=== PATIENT | female | born 1995 | race Caucasian/White ===

== ENCOUNTER 2022-06-01 16:12 | Inpatient (IN) ==
[2022-06-01] MEDS ORDERED: OXYTOCIN 30 UNITS/500 ML BAG IV PRN ×2 (16:53→21:08)
--- NOTE | 2022-06-01 17:02 | History & Physical Report ---
Date of Service June 01, 2022 Assessment & Plan (1) Active labor: Plan: 26 y/o at 39 wga presents in labor VSS Fetus cat 1 Labor - manage expectantly GBS neg desires epidural History of Present Illness Chief Complaint: Contractions Primary Care Provider: Mena Boyle MD 26 y/o at 39 wga presents w/ ctx increasing in frequency and intensity. They started 1AM but really worsened around 130pm at work today. 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 Hx: G1 2018 at 40 wks G2 2019 at 39 wks G3 current Remote hx CT 06/2021 neg cyto Allergies Allergy/AdvReac Type Severity Reaction Status Date / Time No Known Allergies Allergy Verified 05/29/22 13:51 Home Medications Medication Instructions Recorded Confirmed Type prenat.vits,nohelia,jzz-fghq-afjfi 1 tab PO DAILY 02/07/22 06/01/22 History ferrous sulfate 325 mg (65 mg 325 mg PO DAILY 03/27/22 06/01/22 History iron) tablet Patient History Medical History (Updated 06/01/22 @ 17:02 by Kylah Alegria MD) Anxiety Surgical History History of oral surgery Family History Grandfather (Paternal) Diabetes Grandfather (Maternal) Pancreatic cancer Denies family history of Ovarian cancer Prostate cancer Myocardial infarction Breast cancer Colorectal cancer Social History (Updated 02/07/22 @ 09:57 by Mckayla CARDENAS RN) Smoking Status: Never smoker Second Hand Exposure: No; Hx Alcohol Use: No Hx Substance Use: No Preferred Language: Romansh Communication Ability: Effective Line Repairer Required: No Beliefs That Will Affect Care: None marital status: marital status details: Landen Cash (30) [phone] Current Living Situation: Spouse Current Living Situation Comment: FOB and 2 children. 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 How many Children do You have: 2 Other Information That Helps Us Care for You: No Feels Safe at Home: Yes Safety Concerns: Feels Safe At This Time Childhood Exposure to Second-Hand Smoke: Yes Dental Care, Regularly: Yes Seatbelt Use: always Sunscreen Use: No Physical Exam Genitourinary: OB Exam Abdomen: + vertex and + estimated weight (7) Manual OB Exam: + cervical dilation 5 cm, + cervical effacement 70% and + station -2 OB Exam Monitor Tracing: + external FHT monitor used, + external uterine monitor used (q4-5) and + category I (125/mod/+accel/-decel) Results & Data ([facility]) Vital Signs (Past 12 Hours) Vital Signs Temp Pulse Resp BP 06/01/22 16:28 98.2 F 20 06/01/22 16:25 87 122/80 Laboratory Results OB Labs: Blood Type A Positive 02/12/22 Antibody Screen NEGATIVE 02/12/22 Hemoglobin 10.8 g/dL (12.0-16.0) L 03/13/22 Hematocrit 31.8 % (37-47) L 03/13/22 Mean Corpuscular Volume 91.3 fL (80-100) 12/17/21 Platelet Count 202 K/uL (130-400) 12/17/21 Glucose 1 Hour 50 gm Load 101 mg/dl (70-130) 03/13/22 OB Optional Labs: No Data to Display Labs Reviewed: Labs 11/08/21 Blood type - A positive Hgb - 13.5 Hct- 38.7 MCV- 90.6 Hepatitis B antigen - negative Hepatitis C antibody - negative HIV 1/2 antigen/antibody - negative GC/Chlamydia - negative pap - 06/18/22 NILM RPR - nonreactive Rubella - Positive cfdna-low risk--mln GBS neg Diagnostic Findings post plac Coding Level of Care Code None Diagnoses Active labor
[2022-06-01] MEDS ORDERED: ePHEDrine sulfate 50 MG/ML AMP ONE (17:04)
[2022-06-01] MEDS ORDERED: BUPIVACAINE 0.25% 30 ML VIAL ONE (17:05)
[2022-06-01] MEDS ORDERED: fentaNYL citrate 100 MCG/2 ML VIAL ONE (17:05)
[2022-06-01] MEDS ORDERED: SODIUM CHLORIDE 0.9% INJ 10 ML VIAL ONE (17:05)
[2022-06-01] MEDS ORDERED: LIDOCAINE 2%/EPINEPHRINE 1:200,000 20 ML SDV ONE (17:05)
[2022-06-01] MEDS ORDERED: fentaNYL 2MCG/ML ROPIVACAINE 1.25MG/ML 100 ML BAG EPI ONE (17:05)
[2022-06-01] MEDS: LACTATED RINGER'S 1,000 ML IV PRN ×2 (17:07→17:55)
[2022-06-01 17:19] LABS: Hematocrit (blood only) 29.4 % (34.1-44.9); Hemoglobin 9.6 g/dl (12.0-16.0); Mean Corpuscular Hemoglobin 27.7 pg (25.0-34.0); Mean Corpuscular Hgb Conc 32.7 g/dL (32.0-36.0); Mean Corpuscular Volume 84.7 fL (80.0-100.0); Mean Platelet Volume 12.3 fL (9.4-12.3); Platelet Count 186 K/uL (130-400); RDW Coefficient of Variation 13.8 % (11.5-14.5); RDW Standard Deviation 42.3 fL (36.4-46.3); Red Blood Count 3.47 M/uL (3.93-5.22); White Blood Count 9.64 K/ul (4.8-10.8)
--- NOTE | 2022-06-01 17:33 | Anesthesiology Consultation ---
Date of Service June 01, 2022 Assessment & Plan (1) Encounter for pre-operative examination: Chart Review Chart Review: Acceptable Risk for Labor Epidural Consults Requested none ASA ASA2 Proposed Anesthesia Anesthesia Type: Labor Epidural Risk / Benefits Reviewed With: PT / POA / Parent / Guardian, Accepts Plan and Informed Consent Obtained History Height/Weight Height: 5 ft 6 in Weight: 81.193 kg Allergies Allergy/AdvReac Type Severity Reaction Status Date / Time No Known Allergies Allergy Verified 05/29/22 13:51 Medications Home Medications Medication Instructions Recorded Confirmed Last Taken prenat.vits,nohelia,cal-tzdt-ebqxs 1 tab PO DAILY 02/07/22 06/01/22 06/01/22 ferrous sulfate 325 mg (65 mg 325 mg PO DAILY 03/27/22 06/01/22 06/01/22 iron) tablet Active Medications Generic Name Dose Route Start Last Admin Trade Name Freq PRN Reason Stop Dose Admin Lactated Ringer's 1,000 mls @ 125 mls/hr 06/01/22 16:53 06/01/22 17:07 Lr IV 06/03/22 16:52 999 mls/hr .Q8H PRN Administration L&D Protocol Protocol Past Medical History Medical History Anxiety Exercise / Class Metabolic Activity II 4-5 Yardwork/Stairs/Walk up hill Past Family History Family History Grandfather (Paternal) Diabetes Grandfather (Maternal) Pancreatic cancer Denies family history of Ovarian cancer Prostate cancer Myocardial infarction Breast cancer Colorectal cancer Past Surgical History Surgical History History of oral surgery Past Anesthesia History No Hx of Anesthesia Complications and No Family Hx of Anesthesia Complications History of PONV No Hx of PONV and No Hx of Motion Sickness Social History Smoking Status: Never smoker Hx Alcohol Use: No Alcohol type: wine Hx Substance Use: No substance use type: does not use Physical Exam Vital Signs Last Vital Signs Temp 98.2 F 06/01/22 16:28 Pulse 87 06/01/22 16:25 Resp 18 06/01/22 17:15 BP 122/80 06/01/22 16:25 ENMT Mouth: no dentition abnormality Thyromental Distance: > or= 3.5 Finger Breadths Mallampati Class: II Neck normal visual inspection Respiratory normal respiratory effort Auscultation: lungs clear to auscultation bilaterally Cardiovascular Rate/Rhythm: regular rate and regular rhythm Testing Laboratory Results 06/01/22 17:10
[2022-06-01] MEDS ORDERED: diphenhydrAMINE 50 MG/ML VIAL IV PRN (17:56)
[2022-06-01] MEDS ORDERED: NALBUPHINE HCL INJ 10 MG/ML AMP IV PRN (17:56)
[2022-06-01] MEDS ORDERED: fentaNYL 2MCG/ML ROPIVACAINE 1.25MG/ML 100 ML BAG EPI PRN (17:56)
[2022-06-01] MEDS ORDERED: NALOXONE HCL 0.4 MG/1 ML VIAL/CARP IV PRN (17:56)
[2022-06-01] MEDS ORDERED: ePHEDrine sulfate 50 MG/ML AMP IV PRN (17:56)
[2022-06-01] MEDS ORDERED: ONDANSETRON INJ 2 MG/ML 2 ML VIAL IV PRN (17:56)
[2022-06-01] MEDS ORDERED: NALOXONE HCL 1 MG in SODIUM CHLORIDE 0.9% 1000ML 1,000 ML IV PRN (17:56)
--- NOTE | 2022-06-01 19:12 | Labor Progress Brief Note ---
Date of Service June 01, 2022 Subjective comfortable w/ epidural Assessment & Plan (1) Active labor: Plan: 26 y/o at 39 wga presents in labor VSS Fetus cat 1 Labor - good progression, continue to monitor GBS neg epidural in place Admission and Anticipated Discharge Date Admission Date: June 01, 2022 Physical Exam Genitourinary: Manual OB Exam: + cervical dilation 7 cm, + cervical effacement 90%, + station 0 and + amniotic fluid (arom clear) OB Exam Monitor Tracing: + external FHT monitor used, + external uterine monitor used (q4-5) and + category I (120/mod/+accel/-decel) Results & Data ([facility]) Vital Signs (Past 12 Hours) Vital Signs Temp Pulse Resp BP Pulse Ox 06/01/22 16:28 98.2 F 20 06/01/22 19:09 100 06/01/22 19:09 87 06/01/22 19:04 100 06/01/22 19:04 77 06/01/22 19:00 18 06/01/22 19:00 98.4 F 18 06/01/22 18:59 100 06/01/22 18:59 75 06/01/22 18:55 76 06/01/22 18:55 107/61 06/01/22 18:54 99 06/01/22 18:54 68 06/01/22 18:49 99 06/01/22 18:49 78 06/01/22 18:44 98 06/01/22 18:44 72 06/01/22 18:41 65 06/01/22 18:41 112/65 06/01/22 18:39 98 06/01/22 18:39 80 06/01/22 18:34 98 06/01/22 18:34 72 06/01/22 18:29 100 06/01/22 18:29 78 06/01/22 18:24 82 06/01/22 18:24 126/74 06/01/22 18:24 99 06/01/22 18:24 64 06/01/22 18:19 100 06/01/22 18:18 63 06/01/22 18:19 65 06/01/22 18:18 116/65 06/01/22 18:14 98 06/01/22 18:14 84 08/21/22 18:13 75 06/01/22 18:13 111/61 06/01/22 18:09 98 06/01/22 18:09 69 06/01/22 18:08 71 06/01/22 18:08 110/59 L 06/01/22 18:04 99 06/01/22 18:03 85 06/01/22 18:04 68 06/01/22 18:03 112/65 06/01/22 17:59 99 06/01/22 17:58 73 06/01/22 17:59 82 06/01/22 17:58 118/65 06/01/22 17:58 69 06/01/22 17:58 118/65 06/01/22 17:56 77 06/01/22 17:56 123/71 06/01/22 17:54 100 06/01/22 17:54 89 06/01/22 17:54 130/72 06/01/22 17:51 71 06/01/22 17:51 123/62 06/01/22 17:49 99 06/01/22 17:49 77 06/01/22 17:44 99 06/01/22 17:44 98 H 06/01/22 17:39 100 06/01/22 17:39 86 06/01/22 17:35 93 06/01/22 17:35 93 H 06/01/22 17:34 100 06/01/22 17:34 102 H 06/01/22 17:15 18 06/01/22 17:15 18 06/01/22 16:45 20 06/01/22 16:45 20 06/01/22 16:25 87 122/80 Coding Level of Care Code None Diagnoses Active labor
--- NOTE | 2022-06-01 21:04 | Delivery Summary ---
Vaginal Delivery Summary Date of Service June 01, 2022 Vaginal Delivery Summary [facility] PREOPERATIVE DIAGNOSIS: 1. Single intrauterine at 39 weeks gestation 2. Labor POSTOPERATIVE DIAGNOSIS: 1. Single intrauterine at 39 weeks gestation 2. Labor 3. Delivered PROCEDURE: 1. Normal spontaneous vaginal delivery. SURGEON: Kylah Alegria MD ANESTHESIA: Epidural. ESTIMATED BLOOD LOSS: 200 mL FLUIDS: Continuous LR. URINE OUTPUT: None. COMPLICATIONS: None. CONDITION: Stable. INDICATIONS: 26 y/o [id number] at 39 wga presented in labor at 5cm. She received an epidural for pain control and underwent artificial rupture of membranes. She then progressed to complete and desired to push. FINDINGS: A viable male infant, weight pending with Apgars of 8 and 9 at 1 and 5 minutes respectively. SPECIMEN: Cord blood OPERATIVE REPORT: The patient progressed to 10 cm, 100% effaced and +2 station, pushed over intact perineum with anesthesia to deliver a viable male infant, weight and Apgars as above. Head of delivered in MIREYA position. No nuchal cord was present. Body and shoulders were delivered without difficulty. was delivered to maternal abdomen and nursing staff. Delayed cord clamping was performed for 60 seconds. Cord was clamped and cut. Cord blood was obtained. Placenta delivered spontaneously intact with 3-vessel cord. IV oxytocin and fundal massage were given for excellent hemostasis. Vagina, cervix, perineum, and placenta were inspected. A hemostatic right labial abrasion was noted and not needed to be repaired. Sponge and needle counts correct x2. No sponges were left behind. Mother and stable in immediate period. [facility] Vaginal Delivery Charge Vaginal Delivery Codes: 45252 global code for the antepartum, delivery, and post- Delivery Type Details: [facility]
[2022-06-01] MEDS ORDERED: ACETAMINOPHEN 325 MG TAB PO PRN (21:08)
[2022-06-01] MEDS ORDERED: DIPHTHERIA/TETANUS/PERTUSSIS 0.5 ML SYR/VIAL IM ONE (21:08)
[2022-06-01] MEDS ORDERED: HYDROCORTISONE ACETATE 25 MG SUPP PR PRN (21:08)
[2022-06-01] MEDS ORDERED: bisacodyL 10 MG SUPP PR PRN (21:08)
[2022-06-01] MEDS ORDERED: BENZOCAINE 20% AER SPR 82.5 GM CAN EXT PRN (21:08)
--- NOTE | 2022-06-01 22:05 | Anesthesia Procedure Note ---
Date of Service June 01, 2022 Anesthesia Post Epidural Note Vital Signs Vital Signs: Temp Pulse Resp BP Pulse Ox 36.9 C 83 18 114/65 97 06/01/22 19:00 06/01/22 21:55 06/01/22 19:00 06/01/22 21:55 06/01/22 20:54 Notes Mental Status: alert / awake / arousable Nausea / Vomiting: adequately controlled Pain: adequately controlled Airway Patency, RR, SpO2: stable & adequate BP & HR: stable & adequate Hydration State: stable & adequate Neuraxial Anesthesia: was administered and sensory block is resolving Anesthetic Complications: no major complications apparent and Pt Satisfied with anesthetic care Epidural: Removed without complications and With tip intact
--- NOTE | 2022-06-02 07:07 | Obstetrical Progress Note ---
Date of Service June 02, 2022 Assessment & Plan (1) Encounter for care and examination after delivery: 26 yo PP1 from , doing well -Meeting all pp milestones -A+/rubella immune/ -f/u 6 weeks for appt, continue routine pp care. May consider late discharge tonight pending peds and childcare, ok to do so if desires Subjective Ambulation: ambulating normally Voiding: no voiding problems Passing Gas:: Yes Diet Tolerance:: regular diet Lochia:: Small Feeding Type:: breast feeding Pain well managed with medication Review of Systems Denies fevers, chills, n/v, BROOKS, CP, SOB Physical Exam Constitutional WD/WN, vitals as above no acute distress Respiratory normal respiratory effort, lungs clear to auscultation Cardiovascular RRR, no murmur, no edema Gastrointestinal (Abdomen) Percussion/Palpation: abdomen soft; abdomen nontender fundus firm at umbilicus and NT Musculoskeletal BLE symmetric, nonerythematous, nontender Results & Data ([facility]) Vital Signs (Past 12 Hours) Vital Signs Temp Pulse Pulse Resp BP BP Pulse Ox 06/02/22 04:30 97.9 F 62 16 110/71 99 06/01/22 23:30 98.2 F 78 18 110/71 96 06/01/22 22:52 70 06/01/22 22:52 118/63 06/01/22 22:40 76 06/01/22 22:40 94/55 L 06/01/22 22:25 77 06/01/22 22:25 101/59 L 06/01/22 22:10 58 L 06/01/22 22:10 111/68 06/01/22 21:55 83 06/01/22 21:55 114/65 06/01/22 21:40 76 06/01/22 21:40 109/55 L 06/01/22 21:25 80 06/01/22 21:25 127/62 06/01/22 21:10 91 H 06/01/22 21:10 131/60 06/01/22 20:56 95 H 06/01/22 20:56 103/53 L 06/01/22 20:54 97 06/01/22 20:54 93 H 06/01/22 20:49 97 06/01/22 20:49 95 H 06/01/22 20:45 93 06/01/22 20:45 105 H 06/01/22 20:44 100 06/01/22 20:44 88 06/01/22 20:40 87 06/01/22 20:40 160/75 H 06/01/22 20:39 100 06/01/22 20:39 95 H 06/01/22 20:34 100 06/01/22 20:34 89 06/01/22 20:29 96 06/01/22 20:29 94 H 06/01/22 20:28 93 06/01/22 20:28 83 06/01/22 20:26 81 06/01/22 20:26 123/81 06/01/22 20:24 94 06/01/22 20:24 85 06/01/22 20:20 93 06/01/22 20:20 83 06/01/22 20:19 100 06/01/22 20:19 83 06/01/22 20:14 100 06/01/22 20:14 81 06/01/22 20:11 92 06/01/22 20:11 101 H 06/01/22 20:10 85 06/01/22 20:10 115/67 06/01/22 20:09 100 06/01/22 20:09 80 06/01/22 20:04 100 06/01/22 20:04 102 H 06/01/22 19:59 100 06/01/22 19:59 89 06/01/22 19:57 82 06/01/22 19:57 122/72 06/01/22 19:54 100 06/01/22 19:54 90 06/01/22 19:49 100 06/01/22 19:49 75 06/01/22 19:44 100 06/01/22 19:44 64 06/01/22 19:41 63 06/01/22 19:41 108/65 06/01/22 19:39 100 06/01/22 19:39 63 06/01/22 19:34 100 06/01/22 19:34 68 06/01/22 19:29 100 06/01/22 19:29 67 06/01/22 19:25 60 06/01/22 19:25 112/70 06/01/22 19:24 100 06/01/22 19:24 82 06/01/22 19:19 100 06/01/22 19:19 63 06/01/22 19:14 99 06/01/22 19:14 80 06/01/22 19:10 100 H 06/01/22 19:10 111/68 06/01/22 19:09 100 06/01/22 19:09 87 06/01/22 19:04 100 06/01/22 19:04 77 O2 Del Method 06/02/22 04:30 Room Air 06/01/22 23:30 Room Air 06/01/22 22:52 06/01/22 22:52 06/01/22 22:40 06/01/22 22:40 06/01/22 22:25 06/01/22 22:25 06/01/22 22:10 06/01/22 22:10 06/01/22 21:55 06/01/22 21:55 06/01/22 21:40 06/01/22 21:40 06/01/22 21:25 06/01/22 21:25 06/01/22 21:10 06/01/22 21:10 06/01/22 20:56 06/01/22 20:56 06/01/22 20:54 06/01/22 20:54 06/01/22 20:49 06/01/22 20:49 06/01/22 20:45 06/01/22 20:45 06/01/22 20:44 06/01/22 20:44 06/01/22 20:40 06/01/22 20:40 06/01/22 20:39 06/01/22 20:39 06/01/22 20:34 06/01/22 20:34 06/01/22 20:29 06/01/22 20:29 06/01/22 20:28 06/01/22 20:28 06/01/22 20:26 06/01/22 20:26 06/01/22 20:24 06/01/22 20:24 06/01/22 20:20 06/01/22 20:20 06/01/22 20:19 06/01/22 20:19 06/01/22 20:14 06/01/22 20:14 06/01/22 20:11 06/01/22 20:11 06/01/22 20:10 06/01/22 20:10 06/01/22 20:09 06/01/22 20:09 06/01/22 20:04 06/01/22 20:04 06/01/22 19:59 06/01/22 19:59 06/01/22 19:57 06/01/22 19:57 06/01/22 19:54 06/01/22 19:54 06/01/22 19:49 06/01/22 19:49 06/01/22 19:44 06/01/22 19:44 06/01/22 19:41 06/01/22 19:41 06/01/22 19:39 06/01/22 19:39 06/01/22 19:34 06/01/22 19:34 06/01/22 19:29 06/01/22 19:29 06/01/22 19:25 06/01/22 19:25 06/01/22 19:24 06/01/22 19:24 06/01/22 19:19 06/01/22 19:19 06/01/22 19:14 06/01/22 19:14 06/01/22 19:10 06/01/22 19:10 06/01/22 19:09 06/01/22 19:09 06/01/22 19:04 06/01/22 19:04
[2022-06-02] MEDS: DOCUSATE SODIUM 100 MG CAP PO SCH ×2 (07:45→19:24)
[2022-06-02] MEDS ORDERED: PRENATAL VITAMIN 1 TAB PO SCH (08:00)
[2022-06-02] MEDS ORDERED: FERROUS SULFATE 325 MG TAB PO SCH (08:00)
[2022-06-02] MEDS: IBUPROFEN 600 MG TAB PO PRN ×3 (08:48→18:53)
[2022-06-02] MEDS ORDERED: bisacodyL 5 MG TABEC PO SCH (20:00)
== END 2022-06-02 21:30 | disposition home or self-care (01) | DRG 807 ==
LOC: OPB 16:12 → 4S1 16:13 → 4E2 23:19
DX: O80 Encounter for full-term uncomplicated delivery; Z3A.39 39 weeks gestation of pregnancy; Z37.0 Single live birth